=== PATIENT | female | born 1970 | race African-American/Black ===

== ENCOUNTER → 2021-01-03 12:59 | Outpatient (BNVA) | payer OTHER, SELFPAY | PROVIDERS: PCP Internal Medicine; Visit Provider Physician Assistant ==

== ENCOUNTER → 2021-01-04 08:06 | Outpatient (BNVA) | payer OTHER, SELFPAY | PROVIDERS: PCP Internal Medicine; Visit Provider Surgery ==

== ENCOUNTER 2021-01-18 14:04 | Outpatient (REF) | payer OTHER, SELFPAY ==
[2021-01-19 12:36] LABS: H Pylori Breath Test NOT DETECTED (NOT DETECTED)
== END 2021-01-18 14:05 | disposition home or self-care (01) ==
LOC: HO.LNP 14:04
PROVIDERS: Surgery; PCP Internal Medicine; Visit Provider Surgery
DX: Z01.818 Encounter for other preprocedural examination (principal); A04.8 Other specified bacterial intestinal infections
CPT/HCPCS: 83013; 99211

== ENCOUNTER → 2021-01-23 14:17 | Outpatient (BNVA) | payer OTHER, SELFPAY | PROVIDERS: PCP Internal Medicine; Visit Provider Dietitian, Registered | DX: E66.01 Morbid (severe) obesity due to excess calories (principal); Z68.42 Body mass index [BMI] 45.0-49.9, adult | CPT/HCPCS: 97802 ==

== ENCOUNTER 2021-01-24 08:00 | Outpatient (REF) | payer OTHER, SELFPAY ==
--- NOTE | ~2021-01-24 | XR_ITS ---
EXAMINATION: XR CHEST CLINICAL INFORMATION: Obesity COMPARISON: None TECHNIQUE: 2 views of the chest were obtained. FINDINGS: No significant abnormality is noted involving the heart, lungs, mediastinum, bony thorax or soft tissues. XR/XR chest 2V IMPRESSION: Unremarkable examination.
--- NOTE | ~2021-01-24 | FL_ITS ---
EXAMINATION: XR GI SERIES CLINICAL INFORMATION: Obesity COMPARISON: None TECHNIQUE: Upper GI was performed using thin and thick barium and effervescent granules. FINDINGS: Esophageal motility is normal. No esophageal hernia is seen. There is mild gastroesophageal reflux. The stomach and duodenum are normal appearing. No fold thickening, mass, stricture or ulcer is seen. FLUOROSCOPY TIME: 0.9 DOSE AREA PRODUCT: 14 heller per centimeter squared. 22 saved fluoroscopic images. FL/FL upper GI series IMPRESSION: Mild gastroesophageal reflux otherwise unremarkable exam.
--- NOTE | ~2021-01-24 | US_ITS ---
EXAMINATION: US COMPLETE ABDOMEN WITH LIVER ELASTOGRAPHY CLINICAL INFORMATION: Obesity COMPARISON: None. TECHNIQUE: Real-time imaging of the abdominal viscera. Noninvasive ultrasound liver fibrosis assessment is performed using Darryl ElastPQ point quantification shear wave elastography (pSWE) with a C5-2 MHz transducer. Multiple elastography samples are obtained. FINDINGS: PANCREAS: Not well visualized due to bowel gas. ABDOMINAL AORTA: The proximal, middle, and distal aortic segments are normal in caliber. INFERIOR VENA CAVA: Visualized portions are normal. LIVER: Liver echotexture is increased probably representing fatty infiltration. There is a small hypoechoic area adjacent to the gallbladder, characteristic location of focal fatty sparing. The liver demonstrates normal size and contour. No suspicious focal lesion or intrahepatic biliary duct dilatation. The right lobe measures 16 cm in length. The left lobe measures 14 cm in length. Portal flow is the main portal vein is patent with appropriate hepatopedal flow Shear wave liver elastography median stiffness is 1.2 m/s (reference: normal median stiffness is 1.3 m/s or less). IQR/median stiffness to assess sampling precision is 0.3 (reference: good quality data set is IQR/median stiffness of 0.15 or less). GALLBLADDER: Normal. The gallbladder is physiologically distended without evidence of stones, sludge, polyps, wall thickening or pericholecystic fluid. COMMON BILE DUCT: Normal in caliber measuring 0.6 cm in diameter. RIGHT KIDNEY: Normal. No hydronephrosis. No renal calculi or focal parenchymal lesions. The kidney measures 10.3 cm in maximum dimension. LEFT KIDNEY: Normal. No hydronephrosis. No renal calculi or focal parenchymal lesions. The kidney measures 11.2 cm in maximum dimension. SPLEEN: Normal. The spleen measures 9.7 cm in maximum dimension. FREE FLUID: None. US/US abdomen comp w elastography IMPRESSION: 1. Impression: Echogenic liver probably representing fatty infiltration. Limited visualization of the pancreas. 2. Liver elastography: Slightly limited due to sampling error but high probability of normal. REFERENCE: Society of Radiologists in Ultrasound Liver Stiffness Thresholds (2019): LIVER STIFFNESS THRESHOLDS: *Liver Stiffness equal or less than 1.3 m/s: High probability of being normal. *Liver Stiffness less than 1.7 m/s: In the absence of other known clinical signs, rules out compensated advanced chronic liver disease. *Liver Stiffness 1.7-2.1 m/s: Suggestive of compensated advanced chronic liver disease but need further test for confirmation. *Liver Stiffness over 2.1 m/s: Rules in compensated advanced chronic liver disease. *Liver Stiffness over 2.4 m/s: Suggestive of clinically significant portal hypertension. QUALITY OF DATA SET: *IQR/Median value equal or less than 0.15 implies a quality data set. *IQR/Median value over 0.15 implies a poor quality data set. SIGNIFICANT CHANGE FROM PRIOR EXAM: Significant change if liver stiffness measurement is 10% or greater from prior exam. OTHER CONSIDERATIONS: The stage of liver fibrosis may be overestimated in the setting of acute hepatitis, liver inflammation, elevated liver function tests, hepatic vascular congestion, obstructive cholestasis, non-fasting state, and infiltrative diseases such as amyloidosis and lymphoma. In some patients with NAFLD, the liver stiffness thresholds for compensated advanced chronic liver disease may be lower. In causes other than viral hepatitis and NAFLD, liver stiffness thresholds are not well established.
--- NOTE | 2021-01-24 09:30 | ECG_ITS ---
Test Reason : MORBID OBESITY Blood Pressure : / mmHG Vent. Rate : 089 BPM Atrial Rate : 089 BPM P-R Int : 134 ms QRS Dur : 072 ms QT Int : 362 ms P-R-T Axes : 061 034 001 degrees QTc Int : 440 ms Normal sinus rhythm Normal ECG No previous ECGs available Referred By: Luis Angel Burrows Electronically Signed By:RODERICK MALDONADO MD
== END 2021-01-24 08:01 | disposition home or self-care (01) ==
LOC: HO.US 08:00
PROVIDERS: PCP Internal Medicine; Visit Provider Surgery
DX: Z01.818 Encounter for other preprocedural examination (principal); E66.01 Morbid (severe) obesity due to excess calories; K21.9 Gastro-esophageal reflux disease without esophagitis; E78.5 Hyperlipidemia, unspecified; I10 Essential (primary) hypertension; G47.30 Sleep apnea, unspecified
CPT/HCPCS: 71046; 74240; 76705; 76981; 93005

== ENCOUNTER 2021-01-26 07:53 | Outpatient (REF) | payer OTHER, SELFPAY ==
[2021-01-26 08:40] LABS: MANUAL DIFF FLAG NO
[2021-01-26 08:55] LABS: Basophils Percent Auto 0.7 % (0-2); Eosinophils Absolute Auto 0.1 X10*3/uL (0.0-0.4); Eosinophils Percent Auto 1.4 % (0-4); Hematocrit 39.2 % (37-47); Hemoglobin 13.3 g/dl (12.0-16.0); Imm Gran Abs Auto 0.02 X10*3/uL (0.00-0.03); Imm Gran Pct Auto 0.3 % (0.0-0.4); Lymphocytes Absolute Auto 2.2 X10*3/uL (1.2-4.9); Lymphocytes Percent Auto 37.4 % (20-40); Mean Corpuscular HGB Conc 33.9 g/dl (31.0-35.0); Mean Corpuscular Hemoglobin 32.6 pg (27.0-33.0); Mean Corpuscular Volume 96.1 fL (80-98); Mean Platelet Volume 8.8 fL (9.4-12.3); Monocytes Absolute Auto 0.5 X10*3/uL (0.1-1.2); Monocytes Percent Auto 7.6 % (2-11); Neutrophils Absolute Auto 3.1 X10*3/uL (2.0-8.3); Neutrophils Percent Auto 52.6 % (45-73); Platelet Count 340 X10*3/uL (160-400); Red Blood Count 4.08 X10*6/uL (4.20-5.50); Red Cell Distribution Width 11.5 % (11.0-16.0); White Blood Count 5.9 X10*3/uL (4.8-10.8)
[2021-01-26 09:04] LABS: Alanine Aminotransferase 14 U/L (0-31); Albumin Level 4.2 g/dL (3.5-5.0); Alkaline Phosphatase 99 U/L (39-117); Anion Gap 14 (12-20); Aspartate Amino Transferase 12 U/L (5-31); Bilirubin Total 0.6 mg/dL (0.0-1.0); Blood Urea Nitrogen 9 mg/dL (9-16); C Reactive Protein 1.02 mg/dL (< or = 0.50); Calcium 8.9 mg/dL (8.4-10.2); Carbon Dioxide 22 mmol/L (22-29); Chloride 105 mmol/L (96-108); Cholesterol 147 mg/dL; Estimated Glomerular Filt Rate > 60; Glucose Random 157 mg/dL (60-115); HDL Cholesterol 33 mg/dL; LDL Cholesterol Calculated 96 mg/dl; Sodium 137 mmol/L (135-145); Total Protein 7.8 g/dL (6.5-8.0); Triglycerides 91 mg/dL
[2021-01-26 09:27] LABS: Ferritin 58 ng/mL (10-250); TSH reflex Free T4 0.74 uIU/mL (0.32-4.0); Vitamin D 25-OH Total 9.7 ng/mL (>30)
[2021-01-26 10:31] LABS: Estimated Average Glucose 131 mg/dL; Hemoglobin A1c % 6.2 %
[2021-01-28 04:23] LABS: Folate 17.2 ng/mL (> or = 4.0); Vitamin B12 1134 pg/mL (200-900)
[2021-01-28 17:12] LABS: Calcium (PTHI) 9.4 mg/dL (8.6-10.2); Insulin Level Total 24.7 uIU/mL; PTHI 70 pg/mL (14-64)
[2021-01-29 13:17] LABS: Zinc 66 mcg/dL (60-130)
[2021-01-30 14:17] LABS: Vitamin A 33 mcg/dL (38-98)
[2021-01-31 13:12] LABS: Vitamin B1 11 nmol/L (8-30)
== END 2021-01-26 07:54 | disposition home or self-care (01) ==
LOC: HO.LAB 07:53
PROVIDERS: PCP Internal Medicine; Visit Provider Surgery
DX: E66.01 Morbid (severe) obesity due to excess calories (principal); I10 Essential (primary) hypertension; K21.9 Gastro-esophageal reflux disease without esophagitis; E78.5 Hyperlipidemia, unspecified; G47.30 Sleep apnea, unspecified
CPT/HCPCS: 36415; 80053; 80061; 82306; 82607; 82728; 82746; 83036; 83525; 83970; 84425; 84443; 84590; 84630; 85025; 86140

== ENCOUNTER → 2021-01-28 08:20 | Outpatient (BNVA) | payer OTHER, SELFPAY | PROVIDERS: PCP Internal Medicine; Visit Provider Surgery ==

== ENCOUNTER → 2021-02-13 08:10 | Outpatient (BNVA) | payer OTHER, SELFPAY | PROVIDERS: PCP Internal Medicine; Visit Provider Dietitian, Registered | DX: E66.01 Morbid (severe) obesity due to excess calories (principal); Z68.42 Body mass index [BMI] 45.0-49.9, adult | CPT/HCPCS: 97803 ==

== ENCOUNTER → 2021-02-20 08:26 | Outpatient (BNVA) | payer OTHER, SELFPAY | PROVIDERS: PCP Internal Medicine; Visit Provider Surgery ==

== ENCOUNTER → 2021-03-08 08:15 | Outpatient (BNVA) | payer OTHER, SELFPAY | PROVIDERS: PCP Internal Medicine; Visit Provider Surgery ==

== ENCOUNTER 2021-04-03 06:36 | Day surgery (SDC) | payer OTHER, SELFPAY ==
[2021-03-28 10:02] VITALS: BMI 44.7
--- NOTE | 2021-04-02 09:26 | P.CONAN_ITS ---
Documented by User: Chasidy Borrego 04/02/21 09:27 HPI - Anesthesia Eval Consult details Narrative: 50yo F for Colonoscopy PMFSH Active Problems Active Problems: All Active Problems (Updated 02/09/21 @ 13:37 by Luis Angel Burrows MD) Vitamin D deficiency (Acute) Vitamin A deficiency (Acute) Depression (Acute) DJD (degenerative joint disease) (Acute) Sleep apnea with use of continuous positive airway pressure (CPAP) (Acute) Hyperlipidemia (Acute) GERD (gastroesophageal reflux disease) (Acute) Hypertension (Acute) Morbid obesity (Acute) Past Medical History Medical History (Updated 02/09/21 @ 13:37 by Luis Angel Burrows MD) Depression DJD (degenerative joint disease) GERD (gastroesophageal reflux disease) Hyperlipidemia Hypertension Morbid obesity Sleep apnea with use of continuous positive airway pressure (CPAP) Family History Family History Mother Hypertension Hearing difficulty Father Alcoholic Sister No problems noted. Sister Overweight Son No problems noted. Son No problems noted. Surgical History Surgical History (Updated 03/28/21 @ 09:55 by Carolina Benjamin) History of ankle surgery Hx of endoscopy Hx of knee surgery Social History Social History Alcohol intake: current Alcohol intake frequency: does not drink Patient Tobacco Use Status: Never used Tobacco Are you DNR?: No Advance Directives: No Advance Directives Information Provided: No Advance Directives on File: No Patient : No FDLMP: 03/06/2021 : No Meds Allergies Allergy/AdvReac Type Severity Reaction Status Date / Time cat dander Allergy Severe Anaphylaxis Verified 01/04/21 14:17 Seasonal Allergies Allergy Severe Anaphylaxis Verified 01/04/21 14:17 Home Medications Medication Instructions Recorded Confirmed Last Taken Type amlodipine 10 mg tablet 10 mg PO DAILY 01/04/21 03/28/21 Unknown History ascorbic acid (vitamin C) 500 mg 500 mg PO Q OTHER DAY 01/04/21 03/28/21 Unknown History tablet atorvastatin 20 mg tablet 20 mg PO DAILY 01/04/21 03/28/21 Unknown History cider vinegr-apple tab PO 01/04/21 01/04/21 Unknown History orhueo-gfpsuet-F0-min#32 300 mg-50 mg-200 mg tablet ferrous sulfate 325 mg (65 mg 325 mg PO Q OTHER DAY 01/04/21 03/28/21 Unknown History iron) tablet furosemide 20 mg tablet 20 mg PO DAILY 01/04/21 03/28/21 Unknown History ibuprofen 600 mg tablet 600 mg PO Q8H PRN 01/04/21 03/28/21 Unknown History meloxicam 7.5 mg tablet 7.5 mg PO BID 01/04/21 03/28/21 Unknown History metoprolol succinate 25 mg 25 mg PO DAILY 01/04/21 03/28/21 Unknown History tablet,extended release 24 hr montelukast 10 mg tablet 10 mg PO DAILY 01/04/21 03/28/21 Unknown History omeprazole 20 mg capsule,delayed 20 mg PO DAILY 01/04/21 03/28/21 Unknown History release potassium chloride 10 mEq 10 meq PO BID 01/04/21 03/28/21 Unknown History tablet,extended release(part/cryst) sodium hyaluronate (viscosup) See Rx Instructions .ROUTE .COMPLEX 01/04/21 03/28/21 Unknown History Exam Exam Date and Time: April 02, 2021 09 Height,Weight and Vital Signs: Height 5 ft 1 in Weight 107.501 kg Pertinent Lab Results Pertinent Lab Results: Laboratory Tests 01/26/21 01/26/21 08:15 08:15 WBC 5.9 Hgb 13.3 Hct 39.2 Plt Count 340 Sodium 137 Potassium 4.0 Chloride 105 Carbon Dioxide 22 BUN 9 Creatinine 0.68 Assessment and Plan Assessment Anesthesia Assessment: Chart Reviewed Documented by User: Nori Sellers 04/03/21 06:58 [facility] Past Medical History Medical History (Updated 02/09/21 @ 13:37 by Luis Angel Burrows MD) Depression DJD (degenerative joint disease) GERD (gastroesophageal reflux disease) Hyperlipidemia Hypertension Morbid obesity Sleep apnea with use of continuous positive airway pressure (CPAP) Family History Family History Mother Hypertension Hearing difficulty Father Alcoholic Sister No problems noted. Sister Overweight Son No problems noted. Son No problems noted. Surgical History Surgical History (Updated 03/28/21 @ 09:55 by Carolina Benjamin) History of ankle surgery Hx of endoscopy Hx of knee surgery Social History Social History Alcohol intake: current Alcohol intake frequency: does not drink Patient Tobacco Use Status: Never used Tobacco Are you DNR?: No Advance Directives: No Advance Directives Information Provided: No Advance Directives on File: No Patient : No FDLMP: 03/06/2021 : No Meds Allergies Allergy/AdvReac Type Severity Reaction Status Date / Time cat dander Allergy Severe Anaphylaxis Verified 01/04/21 14:17 Seasonal Allergies Allergy Severe Anaphylaxis Verified 01/04/21 14:17 Home Medications Medication Instructions Recorded Confirmed Last Taken Type amlodipine 10 mg tablet 10 mg PO DAILY 01/04/21 03/28/21 Unknown History ascorbic acid (vitamin C) 500 mg 500 mg PO Q OTHER DAY 01/04/21 03/28/21 Unknown History tablet atorvastatin 20 mg tablet 20 mg PO DAILY 01/04/21 03/28/21 Unknown History cider vinegr-apple tab PO 01/04/21 01/04/21 Unknown History bqomrz-origjdx-R3-min#32 300 mg-50 mg-200 mg tablet ferrous sulfate 325 mg (65 mg 325 mg PO Q OTHER DAY 01/04/21 03/28/21 Unknown History iron) tablet furosemide 20 mg tablet 20 mg PO DAILY 01/04/21 03/28/21 Unknown History ibuprofen 600 mg tablet 600 mg PO Q8H PRN 01/04/21 03/28/21 Unknown History meloxicam 7.5 mg tablet 7.5 mg PO BID 01/04/21 03/28/21 Unknown History metoprolol succinate 25 mg 25 mg PO DAILY 01/04/21 03/28/21 Unknown History tablet,extended release 24 hr montelukast 10 mg tablet 10 mg PO DAILY 01/04/21 03/28/21 Unknown History omeprazole 20 mg capsule,delayed 20 mg PO DAILY 01/04/21 03/28/21 Unknown History release potassium chloride 10 mEq 10 meq PO BID 01/04/21 03/28/21 Unknown History tablet,extended release(part/cryst) sodium hyaluronate (viscosup) See Rx Instructions .ROUTE .COMPLEX 01/04/21 03/28/21 Unknown History Exam Airway Mallampati Class: II TM Dist: >3cm Neck ROM: Full Heart: rrr Lungs: cta Assessment and Plan Assessment Anesthesia Assessment: Anesthesia Plan Discussed and Chart Reviewed Final Anesthetic Review NPO: Yes ASA Class: III Final Preanesthetic Review: No Changes in Pt Med Stat and Consent Obtained/Reviewed Patient Risk: Intermediate Procedure Risk: Intermediate Anesthetic Plan Anesthetic Plan: MAC: Disposition: Standard PACU
[2021-04-03 06:58] VITALS: BP 136/80; PULSE 95; RESP 18; TEMP 36.9; O2SAT 96
[2021-04-03 07:12] LABS: UPreg QC Valid YES; Urine Pregnancy NEGATIVE (NEGATIVE)
[2021-04-03] MEDS: Lactated Ringers 1,000 ML 100 ML IVCONT (07:19)
[2021-04-03 08:21] VITALS: BP 121/58; PULSE 90; RESP 16; TEMP 36.1; O2SAT 98
--- NOTE | 2021-04-03 08:25 | PM.OP ---
Brief Operative Note Date of Service: 04/03/21 Pre-op diagnosis: Screening Post-op diagnosis: other (Colon polyp) Procedure: Colonoscopy to the cecum and TI with biopsy and removal of polyp Surgeon: Elroy Askew Anesthesia: MAC Was an Research Hydrologist used for this Procedure?: No Estimated blood loss (mL): 3.0 Pathology: other (A. Polyp at 20cm) Condition: stable Disposition: PACU
[2021-04-03 08:36] VITALS: BP 169/93; PULSE 92; RESP 19; TEMP 36.9; O2SAT 96
--- NOTE | 2021-04-03 10:38 | OP_ITS ---
SURGEON: Elroy Askew MD INDICATIONS: The patient presents for evaluation of colorectal cancer screening and family history of colon cancer. Full consent has been obtained from her for this, including risks of bleeding and perforation. PREOPERATIVE DIAGNOSIS: POSTOPERATIVE DIAGNOSIS: PROCEDURE PERFORMED: Colonoscopy to cecum and terminal ileum with biopsy and removal of polyp. ESTIMATED BLOOD LOSS: COMPLICATIONS: ANESTHESIA: Monitored anesthesia care. ASSISTANTS: SPECIMENS: PREOPERATIVE DIAGNOSES: Colorectal cancer screening and family history of colon cancer. POSTOPERATIVE DIAGNOSES: Colorectal cancer screening and family history of colon cancer, small colon polyp, occasional sigmoid diverticulosis, small internal hemorrhoids. DESCRIPTION OF PROCEDURE: The patient was placed in the left lateral decubitus position. The digital rectal exam revealed no abnormalities. The Olympus video pediatric colonoscope was entered into the rectum and advanced to the cecum with the assistance of abdominal wall pressure. Once in the cecum, I did identify normal-appearing cecal pouch with appendiceal orifice and a normal-appearing ileocecal valve. The terminal ileum was cannulated and appeared normal. The scope was withdrawn back in the colon. The entire cecum and ileocecal valve appeared normal. The scope was slowly withdrawn assessing all mucosal surfaces carefully. Preparation was excellent. At 20 cm, was a flat approximately 3 or 4 mm polyp, which was biopsied and completely removed with cold biopsy forceps. I did not visualize any other polyps, colitis, nor angiodysplasia. There were occasional diverticula noted in the sigmoid colon. In the rectum, scope was retroflexed visualizing minimal internal hemorrhoids, but no other pathology. The rectal mucosa appeared normal. Scope was straightened out and withdrawn from the patient. She tolerated the procedure well and was returned to the recovery area in stable condition. IMPRESSION: 1. Small colon polyp, status post biopsy and removal. 2. Occasional sigmoid diverticulosis. 3. Minimal internal hemorrhoids. PLAN: The results of the biopsy will be checked. Even if this is not a tubular adenoma, I would recommend a followup colonoscopy in 5 years for further screening given her family history of colon cancer. MD ABDI Brandt/HORACIO / [id number]
== END 2021-04-03 09:30 | disposition home or self-care (01) ==
PROVIDERS: Nurse Practitioner; PCP Internal Medicine; Visit Provider Internal Medicine
PROC: 0DJD8ZZ Inspection of Lower Intestinal Tract, Via Natural or Artificial Opening Endoscopic (ICD-10-PCS; CPT 45378; principal; 2021-04-03 07:30)
DX: Z12.11 Encounter for screening for malignant neoplasm of colon (principal); Z80.0 Family history of malignant neoplasm of digestive organs; K63.5 Polyp of colon; K57.30 Diverticulosis of large intestine without perforation or abscess without bleeding; K64.8 Other hemorrhoids; K21.9 Gastro-esophageal reflux disease without esophagitis; I10 Essential (primary) hypertension; D64.9 Anemia, unspecified; E66.01 Morbid (severe) obesity due to excess calories; G47.30 Sleep apnea, unspecified; J30.2 Other seasonal allergic rhinitis; Z99.89 Dependence on other enabling machines and devices; Z79.899 Other long term (current) drug therapy
CPT/HCPCS: 45380; 81025; 88305

== ENCOUNTER 2021-04-10 08:01 | Outpatient (REF) | payer OTHER, SELFPAY ==
[2021-04-11 14:31] LABS: H Pylori Breath Test NOT DETECTED (NOT DETECTED)
== END 2021-04-10 08:02 | disposition home or self-care (01) ==
LOC: HO.LNP 08:01
PROVIDERS: Physician Assistant; PCP Internal Medicine; Visit Provider Surgery
DX: Z01.818 Encounter for other preprocedural examination (principal); E66.01 Morbid (severe) obesity due to excess calories; K21.9 Gastro-esophageal reflux disease without esophagitis; E78.5 Hyperlipidemia, unspecified; G47.30 Sleep apnea, unspecified; Z68.43 Body mass index [BMI] 50.0-59.9, adult; Z71.3 Dietary counseling and surveillance
CPT/HCPCS: 83013; 99211

== ENCOUNTER 2021-04-18 07:30 | Inpatient (IN) | payer OTHER, SELFPAY ==
[2021-04-08 15:25] VITALS: BMI 43.9
[2021-04-11 11:25] LABS: MANUAL DIFF FLAG NO
[2021-04-11 11:28] LABS: Basophils Absolute Auto 0.1 X10*3/uL (0.0-0.2); Basophils Percent Auto 0.7 % (0-2); Eosinophils Absolute Auto 0.1 X10*3/uL (0.0-0.4); Eosinophils Percent Auto 0.8 % (0-4); Hematocrit 35.6 % (37-47); Hemoglobin 11.8 g/dl (12.0-16.0); Imm Gran Abs Auto 0.02 X10*3/uL (0.00-0.03); Imm Gran Pct Auto 0.3 % (0.0-0.4); Lymphocytes Absolute Auto 2.5 X10*3/uL (1.2-4.9); Lymphocytes Percent Auto 35.6 % (20-40); Mean Corpuscular HGB Conc 33.1 g/dl (31.0-35.0); Mean Corpuscular Hemoglobin 32.4 pg (27.0-33.0); Mean Corpuscular Volume 97.8 fL (80-98); Monocytes Absolute Auto 0.5 X10*3/uL (0.1-1.2); Monocytes Percent Auto 6.7 % (2-11); Neutrophils Percent Auto 55.9 % (45-73); Platelet Count 347 X10*3/uL (160-400); Red Blood Count 3.64 X10*6/uL (4.20-5.50); Red Cell Distribution Width 11.9 % (11.0-16.0); White Blood Count 7.1 X10*3/uL (4.8-10.8)
[2021-04-11 11:31] LABS: Prothrombin Time 11.2 SEC (9.9-13.0)
[2021-04-11 11:34] LABS: Partial Thromboplastin Time 43.7 SEC (24.1-38.0)
[2021-04-11 11:36] LABS: Estimated Average Glucose 123 mg/dL; Hemoglobin A1c % 5.9 %
[2021-04-11 12:04] LABS: Alanine Aminotransferase 12 U/L (0-31); Albumin Level 3.9 g/dL (3.5-5.0); Alkaline Phosphatase 102 U/L (39-117); Anion Gap 11 (12-20); Aspartate Amino Transferase 9 U/L (5-31); Bilirubin Total 0.4 mg/dL (0.0-1.0); Blood Urea Nitrogen 10 mg/dL (9-16); Calcium 8.9 mg/dL (8.4-10.2); Carbon Dioxide 26 mmol/L (22-29); Chloride 107 mmol/L (96-108); Cholesterol 147 mg/dL; Estimated Glomerular Filt Rate > 60; Glucose Random 139 mg/dL (60-115); HDL Cholesterol 33 mg/dL; LDL Cholesterol Calculated 102 mg/dl; Potassium 4.1 mmol/L (3.3-5.1); Sodium 140 mmol/L (135-145); Total Protein 7.2 g/dL (6.5-8.0); Triglycerides 61 mg/dL
[2021-04-11 12:26] LABS: TSH reflex Free T4 0.54 uIU/mL (0.32-4.0)
[2021-04-12 20:36] LABS: Insulin Level Total 18.7 uIU/mL
--- NOTE | 2021-04-17 08:40 | P.CONAN_ITS ---
Documented by User: Chasidy Borrego 04/17/21 08:42 HPI - Anesthesia Eval Consult details Narrative: 50yo F for Gastrectomy Sleeve, EGD, Poss Diaphragmatic Hernia, Poss Ventral Hernia, Poss open s/p Colonoscopy with MAC 04/03/21 [facility] Active Problems Active Problems: All Active Problems (Updated 04/08/21 @ 15:28 by Mariel Fonseca) Vitamin D deficiency (Acute) Vitamin A deficiency (Acute) Depression (Acute) DJD (degenerative joint disease) (Acute) Sleep apnea with use of continuous positive airway pressure (CPAP) (Acute) Hyperlipidemia (Acute) GERD (gastroesophageal reflux disease) (Acute) Hypertension (Acute) Morbid obesity (Acute) Past Medical History Medical History Anemia COVID-19 vaccine administered Depression DJD (degenerative joint disease) DVT (deep venous thrombosis) GERD (gastroesophageal reflux disease) Hx of sciatica Hyperlipidemia Hypertension Morbid obesity Osteoarthritis Seasonal allergies Sleep apnea with use of continuous positive airway pressure (CPAP) Family History Family History Mother Hypertension Hearing difficulty Father Alcoholic Sister No problems noted. Sister Overweight Son No problems noted. Son No problems noted. Surgical History Surgical History H/O colonoscopy History of ankle surgery Hx of endoscopy Hx of knee surgery Social History Social History Are you a primary director career to a significant other at home: No Do you presently have visiting nurse or other home services: No Patient Tobacco Use Status: Never used Tobacco Use of substances other than those prescribed or required for medical reasons: No Have you been hit, kicked, punched, or otherwise hurt by someone within the past year? If so, by whom?: No Are you DNR?: No Advance Directives: No Advance Directives Information Provided: Yes (does not have HCP form) Advance Directives on File: No Recently lost weight without trying: No Eating poorly because of decreased appetite: No Nutrition Risks: No Nutritional Risk Patient : No FDLMP: 04/01/21 : No Poor oral hygiene: No (chipped molar-lower left) Meds Allergies Allergy/AdvReac Type Severity Reaction Status Date / Time cat dander Allergy Intermediate Itchy Eyes Verified 07/22/21 09:11 Seasonal Allergies Allergy Intermediate Itchy Eyes Verified 04/18/21 09:11 Home Medications Medication Instructions Recorded Confirmed Last Taken Type amlodipine 10 mg tablet 10 mg PO QPM 01/04/21 04/10/21 04/03/21 06:30 History ascorbic acid (vitamin C) 500 mg 500 mg PO Q OTHER DAY 01/04/21 04/10/21 Unknown History tablet atorvastatin 20 mg tablet 20 mg PO QPM 01/04/21 04/10/21 Unknown History cider vinegr-apple 1 tab PO QPM 01/04/21 04/10/21 Unknown History eauiqo-mpibyva-T9-min#32 300 mg-50 mg-200 mg tablet ferrous sulfate 325 mg (65 mg 325 mg PO Q OTHER DAY 01/04/21 04/10/21 Unknown History iron) tablet furosemide 20 mg tablet 20 mg PO QPM 01/04/21 04/10/21 Unknown History ibuprofen 600 mg tablet 600 mg PO Q8H PRN 01/04/21 04/10/21 Unknown History meloxicam 7.5 mg tablet 7.5 mg PO BID 01/04/21 04/10/21 Unknown History metoprolol succinate 25 mg 25 mg PO QPM 01/04/21 04/10/21 04/03/21 06:30 History tablet,extended release 24 hr montelukast 10 mg tablet 10 mg PO QPM 01/04/21 04/10/21 Unknown History omeprazole 20 mg capsule,delayed 20 mg PO QPM 01/04/21 04/10/21 Unknown History release potassium chloride 10 mEq 10 meq PO BID 01/04/21 04/10/21 Unknown History tablet,extended release(part/cryst) sodium hyaluronate (viscosup) See Rx Instructions .ROUTE .COMPLEX 01/04/21 04/10/21 Unknown History cholecalciferol (vitamin D3) 125 mcg PO QPM 04/08/21 04/10/21 Unknown History vitamin A palmitate 10,000 unit PO QPM 04/08/21 04/10/21 Unknown History Exam Exam Date and Time: April 17, 2021 0840 Height,Weight and Vital Signs: Height 5 ft 1 in Weight 105.596 kg Pertinent Lab Results Pertinent Lab Results: Laboratory Tests 04/11/21 04/11/21 04/11/21 10:30 10:30 10:30 WBC 7.1 RBC 3.64 L Hgb 11.8 L Hct 35.6 L MCV 97.8 MCH 32.4 MCHC 33.1 RDW 11.9 Plt Count 347 MPV 9.0 L Immature Gran % (Auto) 0.3 Neut % (Auto) 55.9 Lymph % (Auto) 35.6 [place] % (Auto) 6.7 Eos % (Auto) 0.8 Baso % (Auto) 0.7 Lymph # (Auto) 2.5 [place] # (Auto) 0.5 Eos # (Auto) 0.1 Baso # (Auto) 0.1 Abs Immat Gran (auto) 0.02 Absolute Neuts (auto) 4.0 Absolute Nucleated RBC 0.000 Nucleated RBC % (auto) 0.0 PT 11.2 INR 1.0 APTT 43.7 H Sodium 140 Potassium 4.1 Chloride 107 Carbon Dioxide 26 Anion Gap 11 L BUN 10 Creatinine 0.68 Estim Creat Clear Calc 112.0 Estimated GFR > 60 Random Glucose 139 H Estimat Average Glucose Hemoglobin A1c % Total Insulin Calcium 8.9 Total Bilirubin 0.4 AST 9 ALT 12 Alkaline Phosphatase 102 C-Reactive Protein 1.60 H Total Protein 7.2 Albumin 3.9 Triglycerides 61 Cholesterol 147 LDL Cholesterol, Calc 102 HDL Cholesterol 33 TSH 0.54 Blood Type Antibody Screen 04/11/21 04/11/21 04/11/21 10:30 10:30 10:30 WBC RBC Hgb Hct MCV MCH MCHC RDW Plt Count MPV Immature Gran % (Auto) Neut % (Auto) Lymph % (Auto) [place] % (Auto) Eos % (Auto) Baso % (Auto) Lymph # (Auto) [place] # (Auto) Eos # (Auto) Baso # (Auto) Abs Immat Gran (auto) Absolute Neuts (auto) Absolute Nucleated RBC Nucleated RBC % (auto) PT INR APTT Sodium Potassium Chloride Carbon Dioxide Anion Gap BUN Creatinine Estim Creat Clear Calc Estimated GFR Random Glucose Estimat Average Glucose 123 Hemoglobin A1c % 5.9 Total Insulin 18.7 Calcium Total Bilirubin AST ALT Alkaline Phosphatase C-Reactive Protein Total Protein Albumin Triglycerides Cholesterol LDL Cholesterol, Calc HDL Cholesterol TSH Blood Type O Positive Antibody Screen NEGATIVE Narrative Narrative: EKG 12/2020 Vent. Rate : 089 BPM Atrial Rate : 089 BPM P-R Int : 134 ms QRS Dur : 072 ms QT Int : 362 ms P-R-T Axes : 061 034 001 degrees QTc Int : 440 ms Normal sinus rhythm Normal ECG No previous ECGs available Assessment and Plan Assessment Anesthesia Assessment: Chart Reviewed Documented by User: Wendy Roberts 04/18/21 09:35 [facility] Past Medical History Medical History Anemia COVID-19 vaccine administered Depression DJD (degenerative joint disease) DVT (deep venous thrombosis) GERD (gastroesophageal reflux disease) Hx of sciatica Hyperlipidemia Hypertension Morbid obesity Osteoarthritis Seasonal allergies Sleep apnea with use of continuous positive airway pressure (CPAP) Family History Family History Mother Hypertension Hearing difficulty Father Alcoholic Sister No problems noted. Sister Overweight Son No problems noted. Son No problems noted. Surgical History Surgical History H/O colonoscopy History of ankle surgery Hx of endoscopy Hx of knee surgery Social History Social History Are you a primary director career to a significant other at home: No Do you presently have visiting nurse or other home services: No Patient Tobacco Use Status: Never used Tobacco Use of substances other than those prescribed or required for medical reasons: No Have you been hit, kicked, punched, or otherwise hurt by someone within the past year? If so, by whom?: No Are you DNR?: No Advance Directives: No Advance Directives Information Provided: Yes (does not have HCP form) Advance Directives on File: No Recently lost weight without trying: No Eating poorly because of decreased appetite: No Nutrition Risks: No Nutritional Risk Patient : No FDLMP: 04/01/21 : No Poor oral hygiene: No (chipped molar-lower left) Meds Allergies Allergy/AdvReac Type Severity Reaction Status Date / Time cat dander Allergy Intermediate Itchy Eyes Verified 04/18/21 09:11 Seasonal Allergies Allergy Intermediate Itchy Eyes Verified 04/18/21 09:11 Home Medications Medication Instructions Recorded Confirmed Last Taken Type amlodipine 10 mg tablet 10 mg PO QPM 01/04/21 04/10/21 04/03/21 06:30 History ascorbic acid (vitamin C) 500 mg 500 mg PO Q OTHER DAY 01/04/21 04/10/21 Unknown History tablet atorvastatin 20 mg tablet 20 mg PO QPM 01/04/21 04/10/21 Unknown History cider jonyegr-apple 1 tab PO QPM 01/04/21 04/10/21 Unknown History eczygp-kjxmvvy-Z9-min#32 300 mg-50 mg-200 mg tablet ferrous sulfate 325 mg (65 mg 325 mg PO Q OTHER DAY 01/04/21 04/10/21 Unknown History iron) tablet furosemide 20 mg tablet 20 mg PO QPM 01/04/21 04/10/21 Unknown History ibuprofen 600 mg tablet 600 mg PO Q8H PRN 01/04/21 04/10/21 Unknown History meloxicam 7.5 mg tablet 7.5 mg PO BID 01/04/21 04/10/21 Unknown History metoprolol succinate 25 mg 25 mg PO QPM 01/04/21 04/10/21 04/03/21 06:30 History tablet,extended release 24 hr montelukast 10 mg tablet 10 mg PO QPM 01/04/21 04/10/21 Unknown History omeprazole 20 mg capsule,delayed 20 mg PO QPM 01/04/21 04/10/21 Unknown History release potassium chloride 10 mEq 10 meq PO BID 01/04/21 04/10/21 Unknown History tablet,extended release(part/cryst) sodium hyaluronate (viscosup) See Rx Instructions .ROUTE .COMPLEX 01/04/21 04/10/21 Unknown History cholecalciferol (vitamin D3) 125 mcg PO QPM 04/08/21 04/10/21 Unknown History vitamin A palmitate 10,000 unit PO QPM 04/08/21 04/10/21 Unknown History Exam Airway Mallampati Class: III (Prominent upper central incisors) TM Dist: >3cm Neck ROM: Full Loose/Missing/Broken Teeth: No Heart: RRR Lungs: CTA Assessment and Plan Assessment Anesthesia Assessment: Anesthesia Plan Discussed and Chart Reviewed Final Anesthetic Review NPO: Yes ASA Class: III Final Preanesthetic Review: Meds/Allgs Chart Reviewed, Consent Obtained/Reviewed and Anes Risks/Benef Reviewed Patient Risk: Intermediate Procedure Risk: Intermediate Anesthetic Plan Anesthetic Plan: GA Disposition: Standard PACU
--- NOTE | 2021-04-17 19:23 | MHC.SHP ---
Pre-Procedural Eval Section A Date of Service: 04/17/21 The patient is an INPATIENT: Yes The History & Physical has been completed within 30 days and I have reviewed it.: Yes Section B Chief Complaint: Morbid Severe Obesity Details of Present Illness: obesity Relevant Family History (Specify if Yes): No Relevant Social History: None Present Medications: see Short Stay Collaborative assessment Medical History: No relevant PMH History of Previous Operations: No relevant previous surgery Allergies: Allergies Allergy/AdvReac Type Severity Reaction Status Date / Time cat dander Allergy Severe Anaphylaxis Verified 04/03/21 07:09 Seasonal Allergies Allergy Severe Anaphylaxis Verified 04/03/21 07:09 Review of Systems Sugical H&P ROS: Negative: Constitution, Cardiovascular, Respiratory, Neurological, Psychiatric, Hem-Onc, Allergic/Immunologic, Gastrointestinal, Genitourinary, Musculoskeletal, Integumentary, Endocrine and Eyes/Ears/Nose/Throat Exam Surgical H&P Exam: Normal: HEENT, Normal: Heart, Normal: Lungs, Normal: Extremities, Normal: Abdomen, Normal: Skin and Normal: Neurological Plan Diagnosis/Plan: Unchanged I have reviewed the history and physical and performed a pertinent physical examination on my patient. No changes have occurred unless specified.
[2021-04-18] VITALS (16 sets, daily range): BP systolic 118–183; BP diastolic 62–94; PULSE 97–118; RESP 12–18; TEMP 36.1–36.4; O2SAT 93–100
[2021-04-18 09:00] LABS: COVID-19 Test Negative (Negative)
[2021-04-18] MEDS: Lactated Ringers 1,000 ML 100 ML IVCONT (09:08)
[2021-04-18] MEDS: Lactated Ringers 1,000 ML 999 ML IV (09:09)
[2021-04-18 09:54] LABS: UPreg QC Valid YES; Urine Pregnancy NEGATIVE (NEGATIVE)
--- NOTE | 2021-04-18 12:05 | PM.OP ---
Brief Operative Note Date of Service: 04/18/21 Pre-op diagnosis: Morbid obesity and comorbidities (see below) Post-op diagnosis: same Procedure: INITIAL PATIENT BMI ON PRESENTATION AT OUR OFFICE: 48.5 kg/m2 LAST BMI BEFORE SURGERY: 42.4 kg/m2 COMORBIDITIES: Sleep apnea, hypertension, GERD, hyperlipidemia, liver steatosis, depression, anxiety, DJD, non-insulin dependent diabetes The patient participated in an intensive weekly lifestyle intervention and exercise program during which the patient has lost between the initial office visit and the last preoperative visit 30lbs, or 12% of initial actual body weight. The patient met the BMI-criteria for bariatric surgery based on the BMI on initial presentation. The patient should not be penalized for achieving such weight loss because it is not sustainable long-term without surgical intervention and it was achieved in preparation for bariatric surgery under my direction and based on my published research ([email or web address] and [email or web address]) that a 10% preoperative weight loss improves long-term weight loss after surgery and reduces perioperative complications. Insurance carriers such as [facility] have endorsed my recommendations and have included in their policies criteria to include a 10% preoperative weight loss requirement. PROCEDURE: Esophago-gastroscopy, laparoscopic sleeve gastrectomy and laparoscopic gastropexy INDICATIONS: This is a 50 year-old female who was electively scheduled for laparoscopic, possibly open sleeve gastrectomy. The risks and complications of the procedure were discussed with the patient in advance, particularly the possibility of ; pulmonary embolism; staple line leak; bleeding; GERD; cardiac, pulmonary, or renal complications; as well as long-term problems such as insufficient weight loss, vitamin deficiency, strictures, or ulcers. The patient understood all the risks, and was in agreement to proceed with surgery. DESCRIPTION OF PROCEDURE: After informed consent was obtained from the patient, the patient was given preoperative antibiotics, and was transferred to the operating room. After successful induction of general anesthesia, pneumatic compressive devices were placed on both lower extremities. An upper endoscopy was performed next. The oropharynx and esophagus appeared to be within normal limits. There was no diaphragmatic hernia present consistent with the findings of the preoperative upper GI. The stomach was entered. Then after all fluid and air were suctioned and the stomach was fully decompressed, the scope was withdrawn and secured in the mid esophagus. The patient was then prepped and draped in the usual sterile manner, and abdominal access was established at the right upper quadrant with the Camille technique. A 12 mm blunt port was inserted, and the abdomen was insufflated with CO2 to a pressure of 15 mmHg. Under direct visualization, additional ports were placed, specifically two 5 mm Versi-step ports to the left upper quadrant, and a 5 mm Versi-Step port to the right upper quadrant. 1% lidocaine plain was used to infiltrate all port sites as well as all fascia defects. Following that, the patient was placed in a steep reverse Trendelenburg position. An additional 5 mm port was placed to the right flank for the Mediflex retractor that was used to retract the left lobe of the liver. The gastro-esophageal fat pad was opened with the ultrasonic device (Thunderbeat, Olympus) and the anterior esophagus and hiatus were exposed. The angle of His was opened with the ultrasonic device the fundus of the stomach from any diaphragmatic and splenic attachments. I then opened the gastrocolic ligament between the transverse colon and the greater curvature of the stomach with the ultrasonic device to enter the lesser sac and facilitate the ligation of the short gastric vessels. I started at a mid-point along the greater curvature and using the Thunderbeat, all short gastric vessels were divided all the way to the angle of His until the left lay was completely dissected at its entirety. I then divided the gastro-colic ligament distally to a distance of about 3-4 cm proximal to the esophagus. The stomach was then divided transversely with one Endo MAYITO-45 purple and five MAYITO-60 articulating orange loads using the AEON stapler and loads. Every effort was made that the gastric sleeve had a tubular shape and an even caliber throughout. Once the sleeve resection was completed, the staple line of the gastric sleeve was reinforced with Hemoclips. The resected stomach was retrieved without difficulty from the Camille port. A gastropexy was then performed in order to prevent postoperative GERD and partial gastric volvulus. Several interrupted 2.0 Surgidac sutures were placed between the sleeve's staple line and the previously divided greater omentum and gastro-colic ligament using the Endo-Stitch device. An upper endoscopy was performed. There was no narrowing at the GE junction. The scope was easily advanced all the way to the pylorus which was clearly visualized. There was no narrowing anywhere and the sleeve's caliber was even throughout. The sleeve's staple line was inspected and there was no evidence of ischemia, bleeding or dehiscence. At that point the gastroscope was withdrawn from the patient?s mouth while we were decompressing the bowel and the stomach from any remaining air. I looked into the lesser sac to see how the sleeve was situating and it was situating well. There was no bleeding from the staple line, spleen, or short gastric vessels. The Mediflex retractor was removed, and the undersurface of the liver was inspected and there was no bleeding. The patient was placed in supine position. I closed the fascial defect of the 12 mm port site with a figure of eight #1 Polysorb suture. Then 100 cc 0.25 % Marcaine plain with 10 mg of Dexamethasone were used to infiltrate the fascial closure as well as all skin incisions. At this point, the abdomen was deflated, all ports were removed under direct vision, and no bleeding was noted from any of the port sites. The skin incisions were irrigated with saline and were closed with 4-0 absorbable monofilament sutures. Steri-Strips and OpSites were used to cover all incisions. The patient was extubated and was transferred in stable condition to the recovery room for further care. I was present and performed all young parts of the procedure. Kt was the offset press assistant. There were no residents to assist with this case. Nikolas Burrows MD, PhD, FACS Surgeon: Luis Angel Burrows MD Anesthesia: GETA, local and other (TAP block) Was an Laboratory Worker used for this Procedure?: Yes Laboratory Worker: Brit Meraz Estimated blood loss (mL): 5 IV fluids (mL): 2,500 Urine output (mL): 0 (No [place] to record) Pathology: other (Stomach) Condition: stable Disposition: PACU
--- NOTE | 2021-04-18 12:09 | PM.PNGS ---
Subjective Subjective Date of Service: 04/19/21 Interval history: Patient had mild incisional pain but was able to ambulate and use the incentive spirometer. Is tolerating phase 1 bariatric diet. Physical Exam Vital Signs: Vital Signs: Last Vital Signs Temp 97.5 F 04/18/21 09:09 Pulse 105 H 04/18/21 09:09 Resp 16 04/18/21 09:09 BP 139/84 04/18/21 09:09 Pulse Ox 98 04/18/21 09:09 Body Mass Index 43.9 GI: Inspection: Yes normal to inspection, Yes incision (dry, clean and intact) and Yes obesity Extrem: Right lower extremity: normal to inspection (no calf tenderness) Left lower extremity: normal to inspection (no calf tenderness) Progress Note: A&P Assessment and plan (1) Morbid obesity: Status: Acute (2) S/P laparoscopic sleeve gastrectomy: Status: Acute Assessment and Plan: s/p laparoscopic sleeve gastrectomy and gastropexy Doing well Check am labs. If OK, will discharge home (3) GERD (gastroesophageal reflux disease): Status: Acute (4) Hypertension: Status: Acute (5) Hyperlipidemia: Status: Acute (6) Non-insulin dependent diabetes mellitus: Status: Acute (7) Steatosis, liver: Status: Acute (8) Hepatomegaly: Status: Acute Fall Risk Details Current Medications: Current Medications Generic Name Dose Route Start Last Admin Trade Name Freq PRN Reason Stop Dose Admin Albuterol Sulfate 2.5 mg 04/18/21 09:35 Albuterol Sulfate (0.083%) 2.5 Mg/3 Ml Vial.Neb INHALE ONCE PRN Wheezing Fentanyl 50 mcg 04/18/21 09:35 Fentanyl Citrate/Pf 100 Mcg/2 Ml Vial IVPUSH Q5M PRN Pain, Severe (Pain Scale 7-10) Fentanyl 25 mcg 04/18/21 09:35 Fentanyl Citrate/Pf 100 Mcg/2 Ml Vial IVPUSH Q5M PRN Pain, Moderate (Pain Scale 4-6 Hydromorphone HCl 0.5 mg 04/18/21 09:35 Hydromorphone Hcl 0.5 Mg/0.5 Ml Syringe IVPUSH Q5M PRN Pain, Severe (Pain Scale 7-10) Hydromorphone HCl 0.25 mg 04/18/21 09:35 Hydromorphone Hcl 0.5 Mg/0.5 Ml Syringe IVPUSH Q5M PRN Pain, Severe (Pain Scale 7-10) Lactated Ringer's 1,000 mls @ 100 mls/hr 04/18/21 08:30 04/18/21 09:08 Lr IVCONT 100 mls/hr .Q10H MARCO ANTONIO Administration Promethazine HCl 12.5 mg/ 50.5 mls @ 202 mls/hr 04/18/21 09:35 Sodium Chloride IV ONCE PRN Nausea and Vomiting Oxycodone HCl 10 mg 04/18/21 09:35 Oxycodone Hcl Immed Release 5 Mg Tablet PO ONCE PRN Pain, Severe (Pain Scale 7-10) Oxycodone HCl 5 mg 04/18/21 09:35 Oxycodone Hcl Immed Release 5 Mg Tablet PO ONCE PRN Pain, Severe (Pain Scale 7-10) Time Spent With Patient Time: Total time spent is greater than 50% in coordination of care (as documented) at patient's floor/unit and/or counseling patient: Time with patient: less than 15 minutes Procedures Date of Service Date of Service: 04/19/21 Quality Stroke Does the patient have a stroke diagnosis?: No VTE Prior VTE?: No VTE Risk Level:: Surgical - moderate VTE Device Contraindication: N/A - Device Ordered VTE Drug Contraindication: Treatment Not Indicated
--- NOTE | 2021-04-18 12:19 | P.DS_ITS ---
DS: Providers Provider Date of Service: 04/19/21 Date of admission: 04/18/21 07:30 Primary care physician: Solomon Wick MD DS: Diagnosis Discharge Diagnosis (1) Morbid obesity: Status: Acute (2) S/P laparoscopic sleeve gastrectomy: Status: Acute (3) GERD (gastroesophageal reflux disease): Status: Acute (4) Hypertension: Status: Acute (5) Hyperlipidemia: Status: Acute (6) Non-insulin dependent diabetes mellitus: Status: Acute (7) Steatosis, liver: Status: Acute (8) Hepatomegaly: Status: Acute DS: Medications Discharge Medications Home Medications: Home Medications Medication Instructions Recorded Confirmed amlodipine 10 mg tablet 10 mg PO QPM 01/04/21 04/18/21 ascorbic acid (vitamin C) 500 mg 500 mg PO Q OTHER DAY 01/04/21 04/18/21 tablet atorvastatin 20 mg tablet 20 mg PO QPM 01/04/21 04/18/21 cider vinegr-apple 1 tab PO QPM 01/04/21 04/18/21 aswhsp-srvaacf-U5-min#32 300 mg-50 mg-200 mg tablet ferrous sulfate 325 mg (65 mg 325 mg PO Q OTHER DAY 01/04/21 04/18/21 iron) tablet furosemide 20 mg tablet 20 mg PO QPM 01/04/21 04/18/21 ibuprofen 600 mg tablet 600 mg PO Q8H PRN 01/04/21 04/18/21 meloxicam 7.5 mg tablet 7.5 mg PO BID 01/04/21 04/18/21 metoprolol succinate 25 mg 25 mg PO QPM 01/04/21 04/18/21 tablet,extended release 24 hr montelukast 10 mg tablet 10 mg PO QPM 01/04/21 04/18/21 omeprazole 20 mg capsule,delayed 20 mg PO QPM 01/04/21 04/18/21 release potassium chloride 10 mEq 10 meq PO BID 01/04/21 04/18/21 tablet,extended release(part/cryst) sodium hyaluronate (viscosup) See Rx Instructions .ROUTE .COMPLEX 01/04/21 04/18/21 cholecalciferol (vitamin D3) 125 mcg PO QPM 04/08/21 04/18/21 vitamin A palmitate 10,000 unit PO QPM 07/12/21 07/22/21 Previous Rx's Medication Instructions Recorded ondansetron HCl 4 mg tablet 4 mg PO Q6H PRN #20 tab 04/10/21 pantoprazole 40 mg tablet,delayed 40 mg PO DAILY #30 tab 04/10/21 release sucralfate 100 mg/mL oral 10 ml PO BID #400 ml 04/10/21 suspension DS: Summary Time Spent with Patient Time attestation: ADMITTING DIAGNOSIS: morbid obesity, sleep apnea, HTN, hyperlipidemia DISCHARGE DIAGNOSIS: same, s/p laparoscopic sleeve gastrectomy PAST SURGICAL HISTORY: ankle and knee surgeries PROCEDURE: upper endoscopy, laparoscopic sleeve gastrectomy DISCHARGE SUMMARY: History of Present Illness: The patient is a 50 year-old woman with a BMI of 48.4 kg/m2 and associated co- morbidities as described above. The patient had extensive work-up,lost 23.8 lbs preoperatively and was electively scheduled for laparoscopic, possible open sleeve gastrectomy and gastropexy. Risks and complications of the surgery were discussed with the patient in advance, particularly the possibility of , pulmonary embolism, anastomotic leak, bleeding, bowel injury, GERD, cardiac, renal or pulmonary complications. The patient understood all the risks and was in agreement with the surgical plan. Hospital Course: The patient underwent an uneventful laparoscopic sleeve gastrectomy with gastropexy on the day of admission. Postoperatively, the patient was transferred to the surgical floor. The patient was on IV Acetaminophen and IV dilaudid for pain control. Patient was started on bariatric phase 1 diet POD #0. On postoperative day one, the patient was feeling well without nausea, vomiting, fevers, or tachycardia. The patient had some mild incisional pain. The abdomen was soft. On the morning of postoperative day one, the patient was continued on 1 ounce of water or ice every half hour. During the first day, the patient did fairly well, having some incisional pain, but able to ambulate adequately and to tolerate liquids well. Since the patient is doing well, we decided that the patient was ready to be discharged. The patient was given instructions to follow-up with me next week and to call my office for any fever over 101, persistent abdominal pain, nausea, vomiting, GERD, symptoms of DVT such as calf tenderness, or leg swelling, or p ulmonary embolism such as chest pain or shortness of breath. The patient was also instructed to drink 40-60 ounces of liquids per day using the 1-ounce cups. The patient was given prescription for Tylenol for pain, Zofran prn for nausea, and pantoprazole and carafate. The patient was encouraged to ambulate and use the incentive spirometer. The patient was allowed to shower, but no baths, and encouraged to stay active at home. All of these instructions were given to the patient personally. All questions were answered and the patient understood all instructions, the instructions were also given to the patient in print. Total time spent providing and/or coordinating discharge services: 15 Discharge coordination time: Less than 30 minutes Quality: Stroke Does the patient have a stroke diagnosis?: No Physical Exam Vital Signs: Vital Signs: Last Vital Signs Temp 97.0 F 04/18/21 12:11 Pulse 103 H 04/18/21 12:11 Resp 16 04/18/21 12:11 BP 143/86 H 04/18/21 12:11 Pulse Ox 100 04/18/21 12:11 Body Mass Index 43.9 DS: Data Data Completed and Pending Pending studies at discharge: Pending at discharge 04/18/21 11:21 Surgical [PTH] Routine Labs on day of discharge: Laboratory Results - last 24 hr 04/18/21 04/18/21 08:29 09:45 Urine Test NEGATIVE COVID-19 ([facility]) Negative COVID-19 Clin Com See Note Discharge Plan Discharge Anticipated Discharge Date/Time: 04/19/21 12:15 Patient Disposition: Home, Self-Care Discharge Diagnosis: s/p sleeve gastrectomy Referrals: Solomon Wick MD [Primary Care Provider] - 1 Week Discharge Medications: Continued cholecalciferol (vitamin D3) 125 mcg (5,000 unit) capsule 125 mcg PO QPM RF: 0 metoprolol succinate 25 mg tablet extended release 24 hr 25 mg PO QPM RF: 0 montelukast 10 mg tablet 10 mg PO QPM RF: 0 amlodipine 10 mg tablet 10 mg PO QPM RF: 0 atorvastatin 20 mg tablet 20 mg PO QPM RF: 0 pantoprazole 40 mg tablet,delayed release (DR/EC) 40 mg PO DAILY Qty: 30 RF: 2 sucralfate 100 mg/mL suspension 10 ml PO BID Qty: 400 RF: 2 ondansetron HCl [Zofran] 4 mg tablet 4 mg PO Q6H PRN (Reason: nausea and vomiting) Qty: 20 RF: 0 Held furosemide 20 mg tablet 20 mg PO QPM RF: 0 Hold Instructions: Discuss when to restart with Dr Burrows potassium chloride 10 mEq tablet,ER particles/crystals 10 meq PO BID RF: 0 Hold Instructions: Restart with furosemide sodium hyaluronate (viscosup) 10 mg/mL(mw 2.4 -3.6 million) syringe See Rx Instructions .ROUTE .COMPLEX RF: 0 Hold Instructions: Discuss when to restart with Dr Burrows Discontinued vitamin A palmitate 10,000 unit capsule 10,000 unit PO QPM RF: 0 omeprazole 20 mg capsule,delayed release(DR/EC) 20 mg PO QPM RF: 0 meloxicam 7.5 mg tablet 7.5 mg PO BID RF: 0 ascorbic acid (vitamin C) 500 mg tablet 500 mg PO Q OTHER DAY RF: 0 ferrous sulfate 325 mg (65 mg iron) tablet 325 mg PO Q OTHER DAY RF: 0 hamilton.[id number]-zhule-wubou-[id number] 300-50-200 mg tablet 1 tab PO QPM RF: 0 ibuprofen 600 mg tablet 600 mg PO Q8H PRN (Reason: Pain) RF: 0 Discharge Orders: Discharge Order (Routine); Ordered 04/19/21 Ordered By: Luis Angel Burrows Diet: other Activity on Discharge: No heavy lifting Stand Alone Forms: Patient Portal Discharge page Care Plan Goals: weight loss Health Concerns: morbid obesity Plan of Treatment: No tub baths, sex or returning to work until discussed at first post op appointment. No exercise, alcohol, tobacco or illegal drug use. Continue to use incentive spirometer hourly while awake. Walk in home for 5- 10 minutes every 2 hours during the first week. Continue phase 1 diet today and start phase 2 diet tomorrow morning. Follow all instructions in the bariatric handbook and call with any questions. The patient's medical history has been reviewed and they are considered low risk for post op DVT and therefore DVT prophylaxis is not considered necessary. Travel after surgery was reviewed. The patient has not disclosed any travel plans during the first 30 days after surgery and they have been advised that within the first 30 days after surgery any bus, plane, train or car travel over 2 hours in duration is contraindicated due to the possibility of developing blood clots from immobility. Any travel, needs to include periods of ambulation of 10 minutes in duration every 2 hours. The patient was instructed to discuss any plans for travel during this period with their bariatric surgeon. Assessment: pod # 1 s/p sleeve gastrectomy Discharge Date/Time: 04/19/21 09:24
[2021-04-18] MEDS: Famotidine/PF 20 MG/2 ML VIAL IVPUSH ×2 (12:31→22:01)
[2021-04-18 13:44] LABS: Hematocrit 39.1 % (37-47); Hemoglobin 12.9 g/dl (12.0-16.0)
[2021-04-18 14:15] LABS: Anion Gap 18 (12-20); Blood Urea Nitrogen 6 mg/dL (9-16); Calcium 8.9 mg/dL (8.4-10.2); Carbon Dioxide 23 mmol/L (22-29); Chloride 100 mmol/L (96-108); Creatinine Clr Calc Pharmacy 97.7; Estimated Glomerular Filt Rate > 60; Glucose Random 169 mg/dL (60-115); Potassium 4.1 mmol/L (3.3-5.1); Sodium 137 mmol/L (135-145)
[2021-04-18] MEDS: Lactated Ringers 1,000 ML 125 ML IVCONT ×2 (14:15→23:19)
[2021-04-18 14:17] LABS: Glucose, Whole Blood 179 mg/dL (60-115)
[2021-04-18] MEDS: ondansetron HCL 4 MG/2 ML VIAL IVPUSH ×2 (15:28→22:01)
[2021-04-18] MEDS: Metoclopramide HCl 10 MG/2 ML VIAL IVPUSH (16:15)
[2021-04-18 16:51] LABS: Glucose, Whole Blood 192 mg/dL (60-115)
[2021-04-18] MEDS: Metoprolol Succinate ER 25 MG TAB.ER.24H PO (20:13)
[2021-04-18] MEDS: amLODIPine Besylate 10 MG TABLET PO (20:13)
[2021-04-18] MEDS: 0.9 % Sodium Chloride Flush 3 ML SYRINGE IVFLUSH (22:01)
[2021-04-19 03:17] VITALS: BP 154/76; PULSE 108; RESP 15; TEMP 37.2; O2SAT 93
[2021-04-19 06:20] LABS: MANUAL DIFF FLAG NO
[2021-04-19 06:28] LABS: Hematocrit 37.4 % (37-47); Hemoglobin 12.7 g/dl (12.0-16.0); Imm Gran Abs Auto 0.07 X10*3/uL (0.00-0.03); Imm Gran Pct Auto 0.6 % (0.0-0.4); Lymphocytes Absolute Auto 1.3 X10*3/uL (1.2-4.9); Lymphocytes Percent Auto 10.7 % (20-40); Mean Corpuscular Hemoglobin 32.7 pg (27.0-33.0); Mean Corpuscular Volume 96.4 fL (80-98); Mean Platelet Volume 9.1 fL (9.4-12.3); Monocytes Absolute Auto 0.5 X10*3/uL (0.1-1.2); Monocytes Percent Auto 3.9 % (2-11); Neutrophils Percent Auto 84.8 % (45-73); Platelet Count 308 X10*3/uL (160-400); Red Blood Count 3.88 X10*6/uL (4.20-5.50); Red Cell Distribution Width 11.8 % (11.0-16.0); White Blood Count 11.8 X10*3/uL (4.8-10.8)
[2021-04-19] MEDS: Lactated Ringers 1,000 ML 125 ML IVCONT (06:28)
[2021-04-19 06:56] LABS: Anion Gap 19 (12-20); Blood Urea Nitrogen 5 mg/dL (9-16); Carbon Dioxide 19 mmol/L (22-29); Chloride 102 mmol/L (96-108); Creatinine Clr Calc Pharmacy 102.9; Estimated Glomerular Filt Rate > 60; Glucose Random 147 mg/dL (60-115); Potassium 4.5 mmol/L (3.3-5.1); Sodium 135 mmol/L (135-145)
[2021-04-19] MEDS: ondansetron HCL 4 MG/2 ML VIAL IVPUSH (07:17)
[2021-04-19 07:28] VITALS: BP 159/74; PULSE 110; RESP 18; TEMP 36.3; O2SAT 97
[2021-04-19] MEDS: 0.9 % Sodium Chloride Flush 3 ML SYRINGE IVFLUSH (08:20)
--- NOTE | 2021-04-19 08:55 | MHC.CM.PN ---
pt dcd no skilled services by
--- NOTE | 2021-04-19 10:31 | HO.POSTANES ---
Post Anesthesia Evaluation Post Anesthesia Evaluation Vital Signs: Vital Signs Temp Pulse Resp BP Pulse Ox 04/19/21 07:28 97.4 F 110 H 18 159/74 H 97 04/19/21 03:17 99 F 108 H 15 154/76 H 93 04/18/21 23:51 97 F 100 18 118/67 93 Anesthesia: General Endotracheal-GETA Mental Status: Awake Pain Control: Satisfactory Nausea/Vomiting: None Hydration: Adequate Anesthesia-Related Issues: No Anes. Related Issues
== END 2021-04-19 09:24 | disposition home or self-care (01) | DRG 403 ==
LOC: HO.SSSA 12:19 → HO.S3 12:33
PROVIDERS: Nurse Practitioner; Physician Assistant; Admitting Provider Surgery; PCP Internal Medicine; Visit Provider Surgery
PROC: 0DB64Z3 Excision of Stomach, Percutaneous Endoscopic Approach, Vertical (ICD-10-PCS; CPT 43845; principal; 2021-04-18 10:10)
DX: E66.01 Morbid (severe) obesity due to excess calories (principal); K76.0 Fatty (change of) liver, not elsewhere classified; R16.0 Hepatomegaly, not elsewhere classified; E11.9 Type 2 diabetes mellitus without complications; G47.30 Sleep apnea, unspecified; K21.9 Gastro-esophageal reflux disease without esophagitis; Z68.41 Body mass index [BMI] 40.0-44.9, adult; E78.5 Hyperlipidemia, unspecified; I10 Essential (primary) hypertension; F32.9 Major depressive disorder, single episode, unspecified; F41.9 Anxiety disorder, unspecified; M19.90 Unspecified osteoarthritis, unspecified site; Z20.822 Contact with and (suspected) exposure to COVID-19; Z79.899 Other long term (current) drug therapy
CPT/HCPCS: 36415; 80048; 80053; 80061; 81025; 82947; 83036; 83525; 84443; 85014; 85018; 85025; 85610; 85730; 86140; 86850; 86900; 86901; 87635; 88307; 88342; 99024; A4649; J0131; J0690; J1100; J1170; J2250; J2405; J2765; J3010

== ENCOUNTER → 2021-04-24 07:42 | Outpatient (BNVA) | payer OTHER, SELFPAY | PROVIDERS: PCP Internal Medicine; Visit Provider Surgery | DX: E66.01 Morbid (severe) obesity due to excess calories (principal); Z68.41 Body mass index [BMI] 40.0-44.9, adult | CPT/HCPCS: 99212 ==

== ENCOUNTER 2021-04-25 15:03 | Outpatient (REF) | payer OTHER, SELFPAY ==
[2021-04-25 15:44] LABS: Estimated Average Glucose 111 mg/dL; Hemoglobin A1c % 5.5 %
[2021-04-25 15:52] LABS: Anion Gap 17 (12-20); Blood Urea Nitrogen 20 mg/dL (9-16); Calcium 10.1 mg/dL (8.4-10.2); Carbon Dioxide 29 mmol/L (22-29); Chloride 97 mmol/L (96-108); Estimated Glomerular Filt Rate > 60; Glucose Random 108 mg/dL (60-115); Potassium 3.6 mmol/L (3.3-5.1); Sodium 139 mmol/L (135-145)
== END 2021-04-25 15:04 | disposition home or self-care (01) ==
LOC: HO.LAB 15:03
PROVIDERS: PCP Internal Medicine; Visit Provider Internal Medicine
DX: R73.03 Prediabetes (principal); I10 Essential (primary) hypertension
CPT/HCPCS: 36415; 80048; 83036

== ENCOUNTER → 2021-06-05 07:04 | Outpatient (BNVA) | payer OTHER, SELFPAY | PROVIDERS: PCP Internal Medicine; Visit Provider Surgery | DX: E66.01 Morbid (severe) obesity due to excess calories (principal); Z68.39 Body mass index [BMI] 39.0-39.9, adult | CPT/HCPCS: 99212 ==

== ENCOUNTER 2021-06-27 14:31 | Outpatient (REF) | payer OTHER, SELFPAY ==
[2021-06-30 14:01] LABS: TS Negative Control Passed; TS Panel A 0; TS Panel B 0; TS Positive Control Passed; TSpotTB Negative (SeeBelow)
== END 2021-06-27 14:32 | disposition home or self-care (01) ==
LOC: HO.LAB 14:31
PROVIDERS: PCP Internal Medicine; Visit Provider Internal Medicine
DX: Z11.1 Encounter for screening for respiratory tuberculosis (principal)
CPT/HCPCS: 36415; 86481

== ENCOUNTER → 2021-07-31 08:13 | Outpatient (BNVA) | payer OTHER, MEDICAID, SELFPAY | PROVIDERS: PCP Internal Medicine; Visit Provider Physician Assistant ==

== ENCOUNTER 2021-08-03 10:45 | Outpatient (REF) | payer OTHER, MEDICAID, SELFPAY ==
[2021-08-03 11:01] LABS: MANUAL DIFF FLAG NO
[2021-08-03 11:09] LABS: Basophils Percent Auto 0.7 % (0-2); Eosinophils Absolute Auto 0.1 X10*3/uL (0.0-0.4); Eosinophils Percent Auto 0.8 % (0-4); Hematocrit 36.8 % (37.0-47.0); Hemoglobin 12.2 g/dl (12.0-16.0); Imm Gran Abs Auto 0.01 X10*3/uL (0.00-0.03); Imm Gran Pct Auto 0.2 % (0.0-0.4); Lymphocytes Absolute Auto 2.2 X10*3/uL (1.2-4.9); Lymphocytes Percent Auto 36.7 % (20-40); Mean Corpuscular HGB Conc 33.2 g/dl (31.0-35.0); Mean Corpuscular Hemoglobin 32.3 pg (27.0-33.0); Mean Corpuscular Volume 97.4 fL (80.0-98.0); Mean Platelet Volume 8.8 fL (9.4-12.3); Monocytes Absolute Auto 0.4 X10*3/uL (0.1-1.2); Monocytes Percent Auto 6.6 % (2-11); Neutrophils Absolute Auto 3.3 x10*3/uL (2.0-8.3); Platelet Count 320 X10*3/uL (160-400); Red Blood Count 3.78 X10*6/uL (4.20-5.50); Red Cell Distribution Width 11.9 % (11.0-16.0)
[2021-08-03 11:32] LABS: Estimated Average Glucose 97 mg/dL
[2021-08-03 11:38] LABS: Alanine Aminotransferase 11 U/L (0-31); Albumin Level 3.9 g/dL (3.5-5.0); Alkaline Phosphatase 93 U/L (39-117); Anion Gap 10 (12-20); Aspartate Amino Transferase 10 U/L (5-31); Bilirubin Total 0.7 mg/dL (0.0-1.0); Blood Urea Nitrogen 6 mg/dL (9-16); C Reactive Protein 2.29 mg/dL (< or = 0.50); Calcium 8.9 mg/dL (8.4-10.2); Carbon Dioxide 28 mmol/L (22-29); Chloride 106 mmol/L (96-108); Cholesterol 164 mg/dL; Estimated Glomerular Filt Rate > 60; Glucose Random 105 mg/dL (60-115); HDL Cholesterol 37 mg/dL; Iron 86 mcg/dL (30-160); LDL Cholesterol Calculated 107 mg/dl; Percent Iron Saturation 34 % (15-50); Potassium 3.9 mmol/L (3.3-5.1); Sodium 140 mmol/L (135-145); Total Iron Binding Capacity 252 mcg/dL (228-428); Total Protein 6.9 g/dL (6.5-8.0); Triglycerides 102 mg/dL; Unsaturated Iron Binding 166 ug/dL
[2021-08-03 11:52] LABS: Ferritin 57 ng/mL (10-250); TSH reflex Free T4 0.51 uIU/mL (0.32-4.0); Vitamin D 25-OH Total 34.3 ng/mL (>30)
[2021-08-03 12:10] LABS: Insulin 8 uU/mL (2-29)
[2021-08-05 10:06] LABS: Folate 16.4 ng/mL (> or = 4.0); Vitamin B12 870 pg/mL (200-900)
[2021-08-05 13:21] LABS: Calcium (PTHI) 8.9 mg/dL (8.6-10.2); PTHI 51 pg/mL (14-64)
[2021-08-07 07:51] LABS: Zinc 77 mcg/dL (60-130)
[2021-08-08 00:36] LABS: Vitamin A 32 mcg/dL (38-98)
[2021-08-13 11:37] LABS: Vitamin B1 16 nmol/L (8-30)
== END 2021-08-03 10:46 | disposition home or self-care (01) ==
LOC: HO.LAB 10:45
PROVIDERS: Visit Provider Physician Assistant
DX: Z98.84 Bariatric surgery status (principal)
CPT/HCPCS: 36415; 80053; 80061; 82306; 82607; 82728; 82746; 83036; 83525; 83540; 83970; 84425; 84443; 84590; 84630; 85025; 86140

== ENCOUNTER → 2021-08-28 08:01 | Outpatient (BNVA) | payer OTHER, MEDICAID, SELFPAY | PROVIDERS: PCP Internal Medicine; Visit Provider Dietitian, Registered | DX: E66.01 Morbid (severe) obesity due to excess calories (principal); Z68.35 Body mass index [BMI] 35.0-35.9, adult | CPT/HCPCS: 97803 ==

== ENCOUNTER → 2021-10-08 08:00 | Outpatient (BNVA) | payer OTHER, MEDICAID, SELFPAY | PROVIDERS: PCP Internal Medicine; Visit Provider Physician Assistant ==

== ENCOUNTER → 2022-01-01 10:00 | Outpatient (BNVA) | payer OTHER, MEDICAID, SELFPAY | PROVIDERS: PCP Internal Medicine; Referring Provider Internal Medicine; Visit Provider Physician Assistant | DX: E50.9 Vitamin A deficiency, unspecified (principal); Z98.84 Bariatric surgery status; E66.9 Obesity, unspecified ==

== ENCOUNTER 2022-01-07 08:10 | Outpatient (REF) | payer OTHER, MEDICAID, SELFPAY ==
[2022-01-07 08:37] LABS: MANUAL DIFF FLAG NO
[2022-01-07 08:58] LABS: Basophils Percent Auto 0.7 % (0-2); Eosinophils Percent Auto 0.7 % (0-4); Hemoglobin 11.9 g/dl (12.0-16.0); Imm Gran Abs Auto 0.02 X10*3/uL (0.00-0.03); Imm Gran Pct Auto 0.3 % (0.0-0.4); Lymphocytes Absolute Auto 2.3 X10*3/uL (1.2-4.9); Mean Corpuscular HGB Conc 33.1 g/dl (31.0-35.0); Mean Corpuscular Hemoglobin 32.8 pg (27.0-33.0); Mean Corpuscular Volume 99.2 fL (80.0-98.0); Mean Platelet Volume 8.2 fL (9.4-12.3); Monocytes Absolute Auto 0.4 X10*3/uL (0.1-1.2); Monocytes Percent Auto 6.3 % (2-11); Neutrophils Absolute Auto 3.1 x10*3/uL (2.0-8.3); Platelet Count 343 X10*3/uL (160-400); Red Blood Count 3.63 X10*6/uL (4.20-5.50); White Blood Count 5.9 X10*3/uL (4.8-10.8)
[2022-01-07 09:15] LABS: Estimated Average Glucose 94 mg/dL; Hemoglobin A1c % 4.9 %
[2022-01-07 09:38] LABS: Alanine Aminotransferase 10 U/L (0-31); Albumin Level 3.8 g/dL (3.5-5.0); Alkaline Phosphatase 83 U/L (39-117); Anion Gap 11 (12-20); Aspartate Amino Transferase 10 U/L (5-31); Bilirubin Total 0.6 mg/dL (0.0-1.0); Blood Urea Nitrogen 8 mg/dL (9-16); C Reactive Protein 0.82 mg/dL (< or = 0.50); Calcium 9.5 mg/dL (8.4-10.2); Carbon Dioxide 28 mmol/L (22-29); Chloride 105 mmol/L (96-108); Cholesterol 171 mg/dL; Estimated Glomerular Filt Rate > 60; Glucose Random 92 mg/dL (60-115); HDL Cholesterol 48 mg/dL; Iron 100 mcg/dL (30-160); LDL Cholesterol Calculated 114 mg/dl; Percent Iron Saturation 35 % (15-50); Potassium 4.5 mmol/L (3.3-5.1); Sodium 139 mmol/L (135-145); Total Iron Binding Capacity 284 mcg/dL (228-428); Total Protein 7.2 g/dL (6.5-8.0); Triglycerides 48 mg/dL; Unsaturated Iron Binding 184 ug/dL
[2022-01-07 10:03] LABS: Folate 13.5 ng/mL (> or = 4.0); Vitamin B12 893 pg/mL (200-900)
[2022-01-07 10:04] LABS: Ferritin 26 ng/mL (10-250); Insulin 8 uU/mL (2-29); Vitamin D 25-OH Total 31.6 ng/mL (>30)
[2022-01-08 11:31] LABS: Calcium (PTHI) 9.1 mg/dL (8.6-10.4); PTHI 33 pg/mL (16-77)
[2022-01-10 23:11] LABS: Zinc 74 mcg/dL (60-130)
[2022-01-11 08:27] LABS: Vitamin B1 11 nmol/L (8-30)
[2022-01-14 03:16] LABS: Vitamin A 44 mcg/dL (38-98)
== END 2022-01-07 08:11 | disposition home or self-care (01) ==
LOC: HO.LAB 08:10
PROVIDERS: Visit Provider Physician Assistant
DX: E66.9 Obesity, unspecified (principal); Z98.84 Bariatric surgery status
CPT/HCPCS: 36415; 80053; 80061; 82306; 82607; 82728; 82746; 83036; 83525; 83540; 83970; 84425; 84443; 84590; 84630; 85025; 86140

== ENCOUNTER 2022-05-30 08:43 | Outpatient (REF) | payer OTHER, MEDICAID, SELFPAY ==
[2022-05-30 09:17] LABS: MANUAL DIFF FLAG NO
[2022-05-30 09:29] LABS: Basophils Percent Auto 0.7 % (0-2); Eosinophils Absolute Auto 0.1 X10*3/uL (0.0-0.4); Hematocrit 36.5 % (37.0-47.0); Hemoglobin 12.4 g/dl (12.0-16.0); Imm Gran Abs Auto 0.01 X10*3/uL (0.00-0.03); Imm Gran Pct Auto 0.2 % (0.0-0.4); Lymphocytes Absolute Auto 2.4 X10*3/uL (1.2-4.9); Lymphocytes Percent Auto 41.3 % (20-40); Mean Corpuscular Volume 97.1 fL (80.0-98.0); Mean Platelet Volume 8.3 fL (9.4-12.3); Monocytes Absolute Auto 0.4 X10*3/uL (0.1-1.2); Monocytes Percent Auto 6.6 % (2-11); Neutrophils Absolute Auto 2.9 x10*3/uL (2.0-8.3); Neutrophils Percent Auto 50.2 % (45-73); Platelet Count 331 X10*3/uL (160-400); Red Blood Count 3.76 X10*6/uL (4.20-5.50); Red Cell Distribution Width 11.7 % (11.0-16.0); White Blood Count 5.7 X10*3/uL (4.8-10.8)
[2022-05-30 09:40] LABS: Estimated Average Glucose 97 mg/dL
[2022-05-30 10:04] LABS: Alanine Aminotransferase 9 U/L (0-31); Alkaline Phosphatase 83 U/L (39-117); Anion Gap 13 (12-20); Aspartate Amino Transferase 11 U/L (5-31); Bilirubin Total 0.7 mg/dL (0.0-1.0); Blood Urea Nitrogen 5 mg/dL (9-16); Calcium 8.9 mg/dL (8.4-10.2); Carbon Dioxide 26 mmol/L (22-29); Chloride 105 mmol/L (96-108); Cholesterol 165 mg/dL; Estimated Glomerular Filt Rate > 60; Glucose Random 101 mg/dL (60-115); HDL Cholesterol 49 mg/dL; Iron 117 mcg/dL (30-160); LDL Cholesterol Calculated 103 mg/dl; Percent Iron Saturation 44 % (15-50); Potassium 3.6 mmol/L (3.3-5.1); Sodium 140 mmol/L (135-145); Total Iron Binding Capacity 264 mcg/dL (228-428); Total Protein 7.3 g/dL (6.5-8.0); Triglycerides 65 mg/dL; Unsaturated Iron Binding 147 ug/dL
[2022-05-30 10:26] LABS: Ferritin 40 ng/mL (10-250); Insulin 10 uU/mL (2-29); TSH reflex Free T4 0.75 uIU/mL (0.32-4.0)
[2022-05-30 10:30] LABS: Folate 14.1 ng/mL (> or = 4.0); Vitamin B12 715 pg/mL (200-900)
[2022-06-01 16:57] LABS: PTHI 61 pg/mL (16-77)
[2022-06-04 05:56] LABS: Zinc 71 mcg/dL (60-130)
[2022-06-05 17:21] LABS: Vitamin A 38 mcg/dL (38-98)
[2022-06-07 11:37] LABS: Vitamin B1 9 nmol/L (8-30)
== END 2022-05-30 08:44 | disposition home or self-care (01) ==
LOC: HO.LAB 08:43
PROVIDERS: Visit Provider Physician Assistant
DX: E66.9 Obesity, unspecified (principal); E50.9 Vitamin A deficiency, unspecified; Z98.84 Bariatric surgery status
CPT/HCPCS: 36415; 80053; 80061; 82306; 82607; 82728; 82746; 83036; 83525; 83540; 83970; 84425; 84443; 84590; 84630; 85025; 86140

== ENCOUNTER → 2022-10-28 09:32 | Outpatient (BNVA) | payer OTHER, MEDICAID, SELFPAY | PROVIDERS: PCP Internal Medicine; Referring Provider Internal Medicine; Visit Provider Physician Assistant Surgical | DX: E66.9 Obesity, unspecified (principal) ==